=== PATIENT | male | born 1930 | race Two or more races ===

== ENCOUNTER 2019-04-15 07:15 | Outpatient (CLI) | payer OTHER ==
[2019-04-16] MEDS ORDERED: PLAVIX75 MG PO (09:31)
[2019-04-16] MEDS ORDERED: CALAN PO (09:32)
== END 2019-04-15 07:36 | disposition home or self-care (01) ==
LOC: LAB 07:15
DX: E03.8 Other specified hypothyroidism (principal); E53.8 Deficiency of other specified B group vitamins; E55.9 Vitamin D deficiency, unspecified; E11.9 Type 2 diabetes mellitus without complications; N39.0 Urinary tract infection, site not specified; Z12.5 Encounter for screening for malignant neoplasm of prostate; R05 Cough; E78.2 Mixed hyperlipidemia; Z12.11 Encounter for screening for malignant neoplasm of colon; M99.63 Osseous and subluxation stenosis of intervertebral foramina of lumbar region; Z01.812 Encounter for preprocedural laboratory examination; Z01.818 Encounter for other preprocedural examination

== ENCOUNTER 2019-04-17 06:59 | Day surgery (SDC) | payer OTHER ==
[~2019-04-17 06:59] MED LIST: CALAN PO; PLAVIX75 MG PO
== END 2019-04-17 14:25 | disposition home or self-care (01) ==
LOC: CIR.AMB 06:59
DX: M99.63 Osseous and subluxation stenosis of intervertebral foramina of lumbar region (principal)